=== PATIENT | male | born 1975 ===

== ENCOUNTER → 2023-06-03 | Outpatient (CLI) | payer SELFPAY ==
[2023-06-03 14:49] LABS: BASOPHILS ABSOLUTE AUTO 0.04 K/mm3 (0.00-0.23); BASOPHILS PERCENT AUTO 1 % (0-2); EOSINOPHILS ABSOLUTE AUTO 0.31 K/mm3 (0.00-0.68); EOSINOPHILS PERCENT AUTO 4 % (0-6); Hematocrit 45.3 % (37.0-53.0); Hemoglobin 14.9 g/dL (13.5-17.5); IMMATURE GRAN ABSOLUTE AUTO 0.02 K/mm3 (0.00-0.10); IMMATURE GRAN PERCENT AUTO 0 % (0-1); LYMPHOCYTES ABSOLUTE AUTO 1.87 K/mm3 (0.84-5.20); LYMPHOCYTES PERCENT AUTO 22 % (21-46); MONOCYTES ABSOLUTE AUTO 0.54 K/mm3 (0.16-1.47); MONOCYTES PERCENT AUTO 6 % (4-13); Mean Corpuscular HGB 27.3 pg (26.0-34.0); Mean Corpuscular HGB Conc 32.9 g/dL (31.5-36.5); Mean Corpuscular Volume 83 fL (80-100); NEUTROPHILS ABSOLUTE AUTO 5.82 K/mm3 (1.96-9.15); NEUTROPHILS PERCENT AUTO 68 % (41-73); Platelet Count 317 K/mm3 (150-400); RDW Coefficient Variation 12.4 % (11.7-14.2); RDW Standard Deviation 37.3 fL (35.1-46.3); Red Blood Cell Count 5.45 M/mm3 (4.30-5.90)
[2023-06-03 15:08] LABS: Bun/Creatinine Ratio 20.2 (12.0-20.0); Calcium, Blood 9.6 mg/dL (8.5-10.1); Creatinine, Blood 1.14 mg/dL (0.60-1.20); Potassium, Blood 4.2 mmol/L (3.5-5.5); Thyroid Stimulating Hormone 2.137 uIU/mL (0.360-4.800)
[2023-06-06 08:46] LABS: ANTI-NUCLEAR AB ANA,IGG ELISA None Detected (None Detected)
[2023-06-06 13:10] LABS: B. BURGDORFERI IGG IMMUNOBLOT Negative (Negative); B. BURGDORFERI IGM IMMUNOBLOT Negative (Negative)
== END | disposition home or self-care (01) ==
LOC: LAB SHORT 14:43 → LAB 14:43
PROVIDERS: Physician Assistant Surgical
DX: M25.59 Pain in other specified joint (principal); R53.83 Other fatigue
CPT/HCPCS: 80048; 84443; 85025; 85651; 86038; 86140; 86430; 86617